=== PATIENT | male | born 1995 | race Caucasian/White ===

== ENCOUNTER 2017-03-09 12:13 | Emergency (ER) | payer OTHER ==
[2017-03-09] MEDS ORDERED: diphenhydrAMINE HCl 50 MG/ML 1 ML VIAL ONE (12:16)
[2017-03-09] MEDS ORDERED: Famotidine In NaCl 20 mg/50 ml Premix Bag ONE (12:17)
[2017-03-09] MEDS ORDERED: methylPREDNISolone Sod Succ/PF 125 MG/2 ML VIAL ONE (12:17)
== END 2017-03-09 13:33 | disposition home or self-care (01) ==
LOC: BURERS 12:13
DX: T63.461A Toxic effect of venom of wasps, accidental (unintentional), initial encounter (principal); F17.220 Nicotine dependence, chewing tobacco, uncomplicated
CPT/HCPCS: 96365; 96375; J1200; J2930

== ENCOUNTER 2017-05-20 18:55 | Emergency (ER) | payer OTHER, SELFPAY ==
[2017-05-20] MEDS ORDERED: cefTRIAXone\\ROCEPHIN 500 MG VIAL ONE (19:24)
[2017-05-20] MEDS ORDERED: Azithromycin 250 MG TAB ONE (19:24)
[2017-05-20 19:28] LABS: Bilirubin Negative (Negative); Blood, Urine Negative (Negative); Clarity Clear (Clear); Glucose, Urine (Dipstick) Negative (Negative); Leukocyte Negative (Negative); Nitrite Negative (Negative); Protein, Urine (Dipstick) Negative (Neg-Trace); Specific Gravity, Urine 1.005 (1.002-1.036); Urobilinogen 0.2 mg/dL (0.2-1.0)
[2017-05-23 20:15] LABS: Chlamydia by PCR Not Detected (NotDetected); GC by PCR Not Detected (NotDetected)
== END 2017-05-20 19:39 | disposition home or self-care (01) ==
LOC: BURERS 18:55
DX: A64 Unspecified sexually transmitted disease (principal)
CPT/HCPCS: 81003; 87480; 87491; 87510; 87591; 87660; 96372; J0696